=== PATIENT | female | born 1970 | race Caucasian/White ===

== ENCOUNTER → 2017-01-08 | Outpatient (CLI) | payer OTHER ==
[~2017-01-08] MED LIST: ALLER-EASE180 MG PO; AMARYL4 MG PO; BIOTIN1 MG PO; COUMADIN 2 MG TA2 M1 PO; EFFEXOR 5050 MG/1 T1 PO; ENBREL 25 MG KI25 M1 SC; ENOXAPARIN40 MG/0.1 SUBQ; FLOMAX0.4 MG PO; FOLIC ACID1 MG PO; GLUCOPHAGE XR500 MG PO; KLOR-CON 1010 MEQ PO; LIPITOR 20 MG T20 M1 PO; MOBIC15 MG PO; OMEPRAZOLE20 M2 PO; OSTEO BI-FLEX1 EAC1 PO; TRAZODONE 150150 M1 PO; VITAMIN D1000 UNI1 PO
== END ==
LOC: LITH 07:45
DX: N20.1 Calculus of ureter (principal); E78.00 Pure hypercholesterolemia, unspecified; E11.9 Type 2 diabetes mellitus without complications; Z98.890 Other specified postprocedural states; Z88.8 Allergy status to other drugs, medicaments and biological substances; Z79.899 Other long term (current) drug therapy